=== PATIENT | male | born 2000 | race African-American/Black ===

== ENCOUNTER 2022-03-30 10:48 | Emergency (ER) | payer OTHER, SELFPAY | END 2022-03-30 12:33 | disposition home or self-care (01) | LOC: NAV ERS 10:48 | DX: S60.221A Contusion of right hand, initial encounter (principal); M77.8 Other enthesopathies, not elsewhere classified; G40.909 Epilepsy, unspecified, not intractable, without status epilepticus; J45.909 Unspecified asthma, uncomplicated; W22.8XXA Striking against or struck by other objects, initial encounter; Z79.899 Other long term (current) drug therapy ==